=== PATIENT | female | born 1995 | race Caucasian/White ===

== ENCOUNTER 2020-08-24 12:40 | Emergency (ER) | payer BC, OTHER ==
[2020-08-24 14:09] LABS: HEMOGLOBIN 12.8 gm/dl (12.3-15.3); RED BLOOD COUNT 4.7 M/UL (4.00-5.10); WHITE BLOOD COUNT 6.8 K/UL (4.5-11.0)
[2020-08-24 14:37] LABS: BUN/CREATININE RATIO 18 (0-10)
== END 2020-08-24 15:45 | disposition home or self-care (01) ==
LOC: ER1 12:40
PROVIDERS: Emergency Medicine
DX: U07.1 COVID-19 (principal); Z88.0 Allergy status to penicillin
CPT/HCPCS: 71045; 80053; 82550; 82553; 83874; 84484; 84703; 85025; 85379; 93005; 99284

== ENCOUNTER 2021-05-05 13:31 | Emergency (ER) | payer OTHER ==
[2021-05-05 16:15] LABS: HEMOGLOBIN 12.7 gm/dl (12.3-15.3); RED BLOOD COUNT 4.67 M/UL (4.00-5.10); WHITE BLOOD COUNT 22.1 K/UL (4.5-11.0)
[2021-05-05 17:08] LABS: BUN/CREATININE RATIO 21 (0-10)
[2021-05-05] MEDS ORDERED: TORADOL 10 MG T10 MG PO (19:53)
[2021-05-05] MEDS ORDERED: HYDROCODON-ACE1 EAC4 PO (19:53)
[2021-05-05] MEDS ORDERED: FLOMAX0.4 MG PO (19:53)
[2021-05-05] MEDS ORDERED: CIPRO500 MG PO (19:53)
== END 2021-05-05 20:21 | disposition home or self-care (01) ==
LOC: ER1 13:31
DX: N13.2 Hydronephrosis with renal and ureteral calculous obstruction (principal); Z20.822 Contact with and (suspected) exposure to COVID-19
CPT/HCPCS: 80053; 81001; 83690; 84703; 85025; 87040; 87077; 87086; 87186; 96374; 96375; 99285; J0696; J2270; J2405; U0002